=== PATIENT | male | born 1945 | race Caucasian/White ===

== ENCOUNTER 2020-04-09 10:25 | Outpatient (CLI) | payer MEDICARE ==
[~2020-04-09 10:25] MED LIST: ACET325T26 PO; ALOG25TA2 PO; ASPIRIN PO; ATOR-2 PO; BUTA-177 PO; COMBIVENT; ERGOCALCIFEROL; FURO20TA3 PO; GLIP10TA13 PO; HYDROCHLOROTH12.5 MG PO; LISI5TAB7 PO; LOSARTAN PO; METF500T27 PO; METO-264 PEG; POTASSIUM CHLORIDE PO; SENN-193 PO; SYMBICORT
== END 2020-04-09 23:59 | disposition home or self-care (01) ==
LOC: CVU 10:25
PROVIDERS: ATTEND Internal Medicine Cardiovascular Disease
DX: I08.8 Other rheumatic multiple valve diseases (principal); I65.23 Occlusion and stenosis of bilateral carotid arteries; I11.9 Hypertensive heart disease without heart failure
CPT/HCPCS: 93306; 93880

== ENCOUNTER → 2020-06-11 | Outpatient (CLI) | payer MEDICARE, OTHER ==
[~2020-06-11] MED LIST changes: +REGADENOSON 0.4 MG/5 ML SYRINGE ONE
== END | disposition home or self-care (01) ==
LOC: CFH 07:28
PROVIDERS: ATTEND Internal Medicine Cardiovascular Disease
DX: I25.9 Chronic ischemic heart disease, unspecified (principal); I10 Essential (primary) hypertension; I42.2 Other hypertrophic cardiomyopathy; R55 Syncope and collapse
CPT/HCPCS: 78452; 93017; A9502; J2785

== ENCOUNTER 2020-07-01 07:24 | Day surgery (SDC) | payer MEDICARE ==
[~2020-07-01] VITALS: Ht 182.9 cm; Wt 89.1 kg
[~2020-07-01 07:24] MED LIST changes: -REGADENOSON 0.4 MG/5 ML SYRINGE ONE
[2020-07-01 07:51] VITALS: BP 152/72
[2020-07-01] MEDS ORDERED: METF10007 PO (08:05)
[2020-07-01] MEDS ORDERED: IPRA4AER INH (08:07)
[2020-07-01] MEDS ORDERED: LOSARTAN PO (08:13)
[2020-07-01] MEDS ORDERED: FURO-92 PO (08:13)
[2020-07-01] MEDS ORDERED: HCTZ PO (08:13)
[2020-07-01] MEDS ORDERED: POTA20TA14 PO (08:13)
[2020-07-01] MEDS ORDERED: TAMS-11 PO (08:14)
[2020-07-01] MEDS ORDERED: FINA5TAB4 PO (08:14)
[2020-07-01] MEDS ORDERED: ERGO500017 PO (08:14)
[2020-07-01] MEDS ORDERED: METO-95 PO (08:14)
[2020-07-01 08:31] LABS: BASOPHILS # (AUTO) 0.03 x10^3/uL (0-0.1); BASOPHILS % (AUTO) 0 % (0-1); EOSINOPHILS # (AUTO) 0.62 x10^3/uL (0-0.4); EOSINOPHILS % (AUTO) 5 % (1-7); LYMPHOCYTES # (AUTO) 1.67 x10^3/uL (1-3.4); LYMPHOCYTES % (AUTO) 14 % (22-44); MD NO; MEAN CORPUSCULAR HEMOGLOBIN 30.5 pg (27.5-34.5); MEAN CORPUSCULAR HGB CONC 32.5 g/dL (33.2-36.2); MEAN CORPUSCULAR VOLUME 93.6 fL (81-97); MEAN PLATELET VOLUME 7.7 fL (7.4-10.4); MONOCYTES # (AUTO) 0.64 x10^3/uL (0.2-0.8); MONOCYTES % (AUTO) 5 % (2-9); NEUTROPHILS # (AUTO) 8.94 x10^3/uL (1.8-6.8); NEUTROPHILS % (AUTO) 75 % (42-75); PLATELET COUNT 333 x10^3/uL (130-400); RED BLOOD COUNT 4.61 x10^6/uL (4.38-5.82); RED CELL DISTRIBUTION WIDTH 15.1 % (9.4-14.8)
[2020-07-01 08:40] LABS: INTERNATIONAL NORMALIZED RATIO 0.93 (0.93-1.1); PROTHROMBIN TIME 9.6 Seconds (9.6-11.5)
[2020-07-01 08:42] LABS: ANION GAP 3 mmol/L (5-15); CALCIUM 9.5 mg/dL (8.5-10.1); CHLORIDE 107 mmol/L (98-107); CREATININE 0.87 mg/dL (0.7-1.3)
[2020-07-01] MEDS ORDERED: LIDOCAINE 2%, 20ML ONE (10:05)
[2020-07-01] MEDS ORDERED: FENTANYL PF 100 MCG/2ML ONE (10:05)
[2020-07-01] MEDS ORDERED: MIDAZOLAM 1 MG/ML, 2ML ONE (10:05)
== END 2020-07-01 14:12 | disposition home or self-care (01) ==
LOC: CACL 07:24
PROVIDERS: ATTEND Internal Medicine Cardiovascular Disease
DX: R94.39 Abnormal result of other cardiovascular function study (principal); I25.10 Atherosclerotic heart disease of native coronary artery without angina pectoris; I25.83 Coronary atherosclerosis due to lipid rich plaque; I42.2 Other hypertrophic cardiomyopathy; I44.2 Atrioventricular block, complete; I10 Essential (primary) hypertension; E78.5 Hyperlipidemia, unspecified; E11.9 Type 2 diabetes mellitus without complications; J45.909 Unspecified asthma, uncomplicated; G47.30 Sleep apnea, unspecified; E66.3 Overweight; Z68.28 Body mass index [BMI] 28.0-28.9, adult; Z79.01 Long term (current) use of anticoagulants; Z79.82 Long term (current) use of aspirin; Z79.84 Long term (current) use of oral hypoglycemic drugs; Z79.899 Other long term (current) drug therapy; Z79.891 Long term (current) use of opiate analgesic; Z87.891 Personal history of nicotine dependence; Z85.038 Personal history of other malignant neoplasm of large intestine; Z90.49 Acquired absence of other specified parts of digestive tract; Z92.21 Personal history of antineoplastic chemotherapy; Z95.0 Presence of cardiac pacemaker; Z80.1 Family history of malignant neoplasm of trachea, bronchus and lung
CPT/HCPCS: 36415; 80048; 85025; 85610; 93458; 99156; C1760; C1769; C1894; J2250; J3010; Q9967